=== PATIENT | female | born 1950 | race Caucasian/White ===

== ENCOUNTER 2017-04-26 13:47 | Outpatient (CLI) | payer MEDICARE, OTHER ==
[2015-04-02 12:54] VITALS: BMI 28.9
[~2017-04-26 13:47] MED LIST: ADVAIR 250/501 DISK INH; BAYER CHEWABLE81 MG PO; CELEXA40 MG PO; COREG25 MG PO; HALCION0.25 MG PO; LIPITOR40 MG PO; MOBIC7.5 MG PO; PROAIR HFA8.5 GM INH; SYNTHROID150 MCG PO; ZESTORETIC 20-1 EACH PO; ZYRTEC10 MG PO
== END 2017-04-26 14:24 ==
LOC: D.MAMMO 13:47
DX: Z12.31 Encounter for screening mammogram for malignant neoplasm of breast (principal)

== ENCOUNTER 2018-01-01 19:47 | Inpatient (IN) | payer MEDICARE, OTHER | END 2018-01-06 18:52 | disposition home or self-care (01) | DRG 193 | LOC: D.ER 19:47 → D.MS 01-02 00:14 | DX: J11.00 Influenza due to unidentified influenza virus with unspecified type of pneumonia (principal); J96.01 Acute respiratory failure with hypoxia; J45.901 Unspecified asthma with (acute) exacerbation; J98.11 Atelectasis; J44.0 Chronic obstructive pulmonary disease with (acute) lower respiratory infection; J44.1 Chronic obstructive pulmonary disease with (acute) exacerbation; F17.210 Nicotine dependence, cigarettes, uncomplicated; I10 Essential (primary) hypertension; E78.5 Hyperlipidemia, unspecified ==

== ENCOUNTER → 2018-05-16 08:00 | Outpatient (CLI) | payer MEDICARE, OTHER ==
[2018-01-02 14:52] VITALS: BMI 27.4
[~2018-05-16 08:00] MED LIST changes: +IPRAT-ALBUT 0.5-3 ML UPD; +MUCINEX600 MG PO; +OMNICEF300 MG PO; +SINGULAIR10 MG PO; +STERAPRED DS 1010 MG PO; +SYMBICORT 16010.2 GM INH; +ZITHROMAX250 MG PO
== END | disposition home or self-care (01) ==
LOC: D.MAMMO 08:00
DX: Z12.31 Encounter for screening mammogram for malignant neoplasm of breast (principal)

== ENCOUNTER → 2018-06-21 10:17 | Outpatient (CLI) | payer MEDICARE, OTHER ==
[2018-01-02 14:52] VITALS: BMI 27.4
== END | disposition home or self-care (01) ==
LOC: D.RAD 10:17 → D.RT 11:00
DX: Z87.01 Personal history of pneumonia (recurrent) (principal); J44.9 Chronic obstructive pulmonary disease, unspecified

== ENCOUNTER → 2019-06-04 14:08 | Outpatient (CLI) | payer MEDICARE, OTHER ==
[2018-01-02 14:52] VITALS: BMI 27.4
== END | disposition home or self-care (01) ==
LOC: D.HCCARDIO 14:08
PROVIDERS: ATTEND Internal Medicine Cardiovascular Disease
DX: R94.31 Abnormal electrocardiogram [ECG] [EKG] (principal)

== ENCOUNTER 2019-06-15 08:00 | Outpatient (CLI) | payer MEDICARE, OTHER ==
[2018-01-02 14:52] VITALS: BMI 27.4
== END 2019-06-15 23:59 | disposition home or self-care (01) ==
LOC: D.MAMMO 08:00
PROVIDERS: ATTEND Family Medicine
DX: Z12.31 Encounter for screening mammogram for malignant neoplasm of breast (principal)

== ENCOUNTER 2019-08-06 08:00 | Outpatient (CLI) | payer MEDICARE, OTHER ==
[2018-01-02 14:52] VITALS: BMI 27.4
== END 2019-08-06 23:59 | disposition home or self-care (01) ==
LOC: D.MAMMO 08:00
PROVIDERS: ATTEND Family Medicine
DX: R92.2 Inconclusive mammogram (principal)

== ENCOUNTER 2020-08-12 06:07 | Emergency (ER) | payer MEDICARE, OTHER ==
[~2020-08-12] VITALS: Ht 167.6 cm; Wt 76.4 kg
[2020-08-12 06:11] VITALS: Ht 167.6 cm; Wt 76.4 kg
[2020-08-12] MEDS ORDERED: CYMBALTA60 MG PO (06:12)
[2020-08-12] MEDS ORDERED: NEURONTIN600 MG PO (06:14)
[2020-08-12 07:01] LABS: BASOPHILS 0.1 % (0-2); EOSINOPHILS 0.5 % (0-7); HEMOGLOBIN 15.7 g/dL (12-16); IMMATURE GRANULOCYTES 0.5 % (0-5); LYMPHOCYTES 18.4 % (15-50); MCH 29.9 pg (26.0-34.0); MCHC 34.1 g/dL (31.0-37.0); MCV 87.6 fL (80.0-100.0); MEAN PLATELET VOLUME 12.3 fL (7.4-10.4); NEUTROPHILS 72.5 % (40-80); PLATELET COUNT 215 10x3/uL (130-400); RBC 5.25 10x6/uL (4.00-5.40); RDW 13.3 % (11.5-14.5); WBC 8.8 10x3/uL (4.8-10.8)
[2020-08-12 07:19] LABS: CALC OSMOLALITY 271 mosm/kg (275-300); CALCIUM 9.4 mg/dL (8.5-10.1); CARBON DIOXIDE 28.6 mmol/L (21.0-32.0); CHLORIDE - SERUM 96 mmol/L (98-107); CREATININE - SERUM 1.1 mg/dL (0.6-1.3); GLUCOSE 119 mg/dL (74-106); POTASSIUM - SERUM 3.8 mmol/L (3.5-5.1); SODIUM 134 mmol/L (136-145); UREA NITROGEN 22 mg/dL (7-18); eGFR NON AFRICAN AMERICAN 52 mL/min (90-120)
[2020-08-12 07:30] LABS: BILIRUBIN NEGATIVE (NEGATIVE); KETONE NEGATIVE (NEGATIVE); NITRITE NEGATIVE (NEGATIVE); UROBILINOGEN NORMAL mg/dL (< 2)
[2020-08-12 07:31] LABS: BACTERIA FEW HPF (NONE SEEN)
[2020-08-12 07:32] LABS: APTT 30.6 SECONDS (22.8-39.4); INR 0.94 (0.85-1.17); PROTIME 12.5 SECONDS (11.6-15.0)
[2020-08-12 07:36] LABS: ALBUMIN 3.8 g/dL (3.4-5.0); ALKALINE PHOSPHATASE 118 U/L (30-120); ALT (SGPT) 49 U/L (10-68); AMYLASE - SERUM 45 U/L (25-115); BILIRUBIN - TOTAL 0.46 mg/dL (0.2-1.3); CKMB 1.3 U/L (0.0-3.6); CREATINE KINASE 91 UL (21-215); LIPASE 66 U/L (73-393); MAGNESIUM - SERUM 1.7 mg/dL (1.8-2.4); PRO BNP 83 pg/mL (0-125); PROTEIN - SERUM 6.6 g/dL (6.4-8.2)
[2020-08-12 07:37] LABS: TROPONIN-I < 0.017 ng/mL (0.000-0.060)
[2020-08-12] MEDS ORDERED: FLORASTOR250 MG PO (08:01)
[2020-08-12] MEDS ORDERED: KEFLEX500 MG PO (08:01)
[2020-08-12] MEDS ORDERED: MECLIZINE HCL25 MG PO (08:02)
[2020-08-12 09:53] VITALS: BP 142/73
== END 2020-08-12 09:55 | disposition home or self-care (01) ==
LOC: D.ER 06:07
PROVIDERS: Family Medicine
DX: J30.2 Other seasonal allergic rhinitis (principal); E07.9 Disorder of thyroid, unspecified; I10 Essential (primary) hypertension; J44.9 Chronic obstructive pulmonary disease, unspecified; Z72.0 Tobacco use; R53.1 Weakness; R11.0 Nausea

== ENCOUNTER → 2020-08-25 18:35 | Outpatient (CLI) | payer MEDICARE, OTHER ==
[2020-08-12 06:11] VITALS: BMI 27.1
[~2020-08-25 18:35] MED LIST changes: +CYMBALTA60 MG PO; +FLORASTOR250 MG PO; +KEFLEX500 MG PO; +MECLIZINE HCL25 MG PO; +NEURONTIN600 MG PO
== END | disposition home or self-care (01) ==
LOC: D.LABREF 18:35
PROVIDERS: ATTEND Orthopaedic Surgery
DX: M17.11 Unilateral primary osteoarthritis, right knee (principal)

== ENCOUNTER → 2021-02-10 10:31 | Outpatient (CLI) | payer MEDICARE, OTHER ==
[2020-10-12 23:52] VITALS: BMI 27.5
[~2021-02-10 10:31] MED LIST changes: +ALPHAGAN 0.2%5 ML EACH EYE; +BUSPIRONE HCL7.5 MG PO; +CALCIUM; +CLARITIN 10 MG10 MG PO; +ELIQUIS2.5 MG PO; +FLUTICASONE PRO16 GM NASAL; +HYDROCODON-ACE1 EA10 PO; +LISINOPRIL20 MG PO; +LUNESTA2 M1 PO; +VISTARIL25 MG PO; +VISTARIL50 MG PO; +VIT D3; +XALATAN 0.0052.5 ML EACH EYE; +ZOFRAN ODT4 MG/UDTAB PO
== END | disposition home or self-care (01) ==
LOC: D.LAB 10:31
PROVIDERS: ATTEND Internal Medicine Pulmonary Disease
DX: J44.9 Chronic obstructive pulmonary disease, unspecified (principal); Z11.52 Encounter for screening for COVID-19

== ENCOUNTER 2021-02-17 08:00 | Outpatient (CLI) | payer MEDICARE, OTHER ==
[2020-10-12 23:52] VITALS: BMI 27.5
== END 2021-02-17 08:01 | disposition home or self-care (01) ==
LOC: D.RT 08:00
PROVIDERS: ATTEND Internal Medicine Pulmonary Disease
DX: J44.9 Chronic obstructive pulmonary disease, unspecified (principal)